=== PATIENT | male | born 1955 | race Caucasian/White ===

== ENCOUNTER 2017-12-14 09:21 | Inpatient (IN) | payer MEDICARE ==
[~2017-12-14] VITALS: Ht 177.8 cm; Wt 76.2 kg
[2017-12-14] MEDS ORDERED: SODIUM CHLORIDE 0.9% 1,000 ML IVB ONE (09:41)
[2017-12-14] MEDS ORDERED: ACETAMINOPHEN 325 MG TAB PO ONE (09:45)
[2017-12-14] MEDS ORDERED: LABETALOL HCL 5 MG/ML ML 20ML VIAL IV ONE (10:30)
[2017-12-14] MEDS ORDERED: SODIUM CHLORIDE 0.9% 1,000 ML IV ONE (10:30)
[2017-12-14 10:39] LABS: Basophils # (auto) 0 uL; Eosinophils # (auto) 0 uL; Lymphocytes # (auto) 0.1 uL; Mean Corpuscular Volume 95.2 fL (80.0-100.0); Monocytes # (auto) 0.1 uL
[2017-12-14 10:50] LABS: INR 1.25 (0.9-1.15); Partial Thromboplastin Time 30.1 sec (22.64-33.71); Prothrombin Time 13.7 sec (9.37-12.3)
[2017-12-14 10:55] LABS: Lactic Acid w/Reflex 3.4 mmol/L (0.4-2.0)
[2017-12-14 10:56] LABS: Urine Bacteria FEW /hpf (None Seen); Urine Blood 2+ /uL (Negative); Urine Specific Gravity 1.017 (1.001-1.035); Urine WBC 10 /hpf (0 - 3)
[2017-12-14 11:02] LABS: Alcohol, Urine < 3.0 mg/dL (0-5); Amphetamine Screen, Urine NEGATIVE (NEGATIVE); Barbiturate Scree,Urine NEGATIVE (NEGATIVE); Benzodiazephine Screen, Urine NEGATIVE (NEGATIVE); Cannabinoid Screen, Urine NEGATIVE (NEGATIVE); Cocaine Screen, Urine NEGATIVE (NEGATIVE); Opiate Scree,Urine NEGATIVE (NEGATIVE); Phencyclidine Screen, Urine NEGATIVE (NEGATIVE)
[2017-12-14 11:09] LABS: Albumin 3.5 g/dL (3.4-5.0); Bilirubin, Total 1.3 mg/dL (0.2-1.0); Calcium 8.8 mg/dL (8.5-10.1); Magnesium 1.9 mg/dL (1.6-2.6); Potassium 4.9 mmol/L (3.5-5.1); Total Protein 7.3 g/dL (6.4-8.2)
[2017-12-14 11:44] LABS: Basophils % (auto) 0.1 % (0.0-2.0); Hematocrit 30.7 % (41.0-53.0); Hemoglobin 10.2 g/dL (13.5-17.5); Lymphocytes % (auto) 5.1 % (10.0-50.0); Mean Corpuscular Hemoglobin 31.8 pg (28.0-32.0); Mean Corpuscular Hgb Conc. 33.4 g/dL (32.0-36.0); Monocytes % (auto) 4.6 % (0.0-12.0); Neutrophils # (auto) 1.8 uL; Neutrophils % (auto) 90.2 % (37.0-80.0); Nucleated Red Blood Cells % 0.7 %; Platelet Count (auto) 37 10^3/uL (140-450); Red Blood Cells 3.22 10^6/uL (4.5-5.90); Red Cell Distribution Width 16.8 % (11.8-14.3)
[2017-12-14] MEDS ORDERED: cefTRIAXone 1GM/10ml IVPUSH 10 ML IV ONE (12:30)
[2017-12-14] MEDS ORDERED: PIPERACILLIN-TAZOB 2.25GM 50 ML IV ONE (13:00)
[2017-12-14] MEDS ORDERED: LORazepam 0.5 MG TAB PO PRN (13:00)
[2017-12-14] MEDS ORDERED: ACETAMINOPHEN 500 MG TAB PO PRN (13:00)
[2017-12-14] MEDS ORDERED: HYDROcodone-ACET 5/325MG TAB PO PRN (13:00)
[2017-12-14] MEDS ORDERED: MORPHINE SULFATE 4 MG/ML SYR/VIAL IV PRN ×2 (13:00)
[2017-12-14] MEDS ORDERED: NITROGLYCERIN 0.4 MG SL TAB SL PRN (13:00)
[2017-12-14] MEDS ORDERED: METOPROLOL TARTRATE 25 MG TAB PO ONE (13:00)
[2017-12-14] MEDS ORDERED: TEMAZEPAM 15 MG CAP PO PRN (13:00)
[2017-12-14] MEDS ORDERED: PROMETHAZINE HCL 25 MG/ML 1ML IV PRN (13:00)
[2017-12-14] MEDS ORDERED: LACTULOSE 20Gm/30ML SOLN PO PRN (13:00)
[2017-12-14] MEDS ORDERED: DEXTROSE (50%) 50ML SYRG IV PRN (13:00)
[2017-12-14] MEDS ORDERED: ACETAMINOPHEN 500 MG TAB PO ONE ×2 (13:09→13:15)
[2017-12-14] MEDS ORDERED: PIPERACILLIN-TAZOB 0.75 GM in D5W 5% 50 ML IV PRN (13:30)
[2017-12-14 13:40] LABS: CRP High Sensitivity 14.3 mg/dL (< 0.3)
[2017-12-14 14:12] LABS: Folate (Folic Acid) 23.85 ng/mL (5.38-24)
[2017-12-14] MEDS: ACCU-CHEK COMFORT CURVE STRIP VI SCH ×3 (17:05→23:50)
[2017-12-14] MEDS: InsuLIN REG 1unit/0.01ml Soln (100units/ml) SC SCH ×3 (17:10→23:50)
[2017-12-14] MEDS ORDERED: ENOXAPARIN SOD 60 MG/0.6 ML SYRINGE SC ONE (20:15)
[2017-12-14] MEDS: PIPERACILLIN-TAZOB 2.25GM 50 ML IV SCH (21:23)
[2017-12-14] MEDS: METOPROLOL TARTRATE 25 MG TAB PO SCH (23:44)
[2017-12-14] MEDS: ATORVASTATIN 20 MG TAB PO SCH (23:44)
[2017-12-15] MEDS ORDERED: VANCOMYCIN PER PHARMACY 0 MG IV SCH (00:30)
[2017-12-15] MEDS ORDERED: VANCOMYCIN 1GM/250ML 250 ML IV ONE ×2 (01:30→07:00)
[2017-12-15] MEDS: ACCU-CHEK COMFORT CURVE STRIP VI SCH ×5 (05:39→20:37)
[2017-12-15] MEDS: InsuLIN REG 1unit/0.01ml Soln (100units/ml) SC SCH ×5 (05:40→20:37)
[2017-12-15 05:48] LABS: Basophils # (auto) 0 uL; Basophils % (auto) 0.1 % (0.0-2.0); Eosinophils # (auto) 0 uL; Hemoglobin 10.7 g/dL (13.5-17.5); Lymphocytes # (auto) 0.2 uL; Monocytes # (auto) 0.1 uL; Neutrophils # (auto) 2.3 uL; White Blood Cell 2.6 10^3/uL (4.4-10.8)
[2017-12-15 05:51] LABS: Hematocrit 30.8 % (41.0-53.0); Lymphocytes % (auto) 8.6 % (10.0-50.0); Mean Corpuscular Hemoglobin 32.9 pg (28.0-32.0); Mean Corpuscular Hgb Conc. 34.8 g/dL (32.0-36.0); Mean Corpuscular Volume 94.5 fL (80.0-100.0); Monocytes % (auto) 3.4 % (0.0-12.0); Neutrophils % (auto) 87.9 % (37.0-80.0); Nucleated Red Blood Cells % 0.3 %; Platelet Count (auto) 41 10^3/uL (140-450); Red Blood Cells 3.26 10^6/uL (4.5-5.90)
[2017-12-15 05:58] LABS: INR 1.37 (0.9-1.15); Partial Thromboplastin Time 43.2 sec (22.64-33.71)
[2017-12-15 06:18] LABS: Albumin 2.7 g/dL (3.4-5.0); BUN/Creatinine Ratio 8.6; Bilirubin, Total 1.4 mg/dL (0.2-1.0); Calcium 8.2 mg/dL (8.5-10.1); Potassium 4.6 mmol/L (3.5-5.1); Total Protein 6.3 g/dL (6.4-8.2)
[2017-12-15] MEDS ORDERED: FURO20TA3 PO (09:24)
[2017-12-15] MEDS ORDERED: CARV12.544 PO (09:24)
[2017-12-15] MEDS ORDERED: DOXA8TAB PO (09:24)
[2017-12-15] MEDS ORDERED: FOLI1TAB6 PO (09:24)
[2017-12-15] MEDS ORDERED: CARV25TA PO (09:24)
[2017-12-15] MEDS ORDERED: TACR1CAP19 PO (09:24)
[2017-12-15] MEDS ORDERED: ASPI81TA27 PO (09:24)
[2017-12-15] MEDS ORDERED: CYA100I PO (09:24)
[2017-12-15] MEDS ORDERED: AMLO5TAB2 PO (09:24)
[2017-12-15] MEDS ORDERED: AMOX250C3 PO (09:24)
[2017-12-15] MEDS ORDERED: DOCU100T15 PO (09:24)
[2017-12-15] MEDS: PANTOPRAZOLE 40 MG/10 ML VIAL IV SCH (10:00)
[2017-12-15] MEDS: PIPERACILLIN-TAZOB 2.25GM 50 ML IV SCH ×2 (10:00→22:15)
[2017-12-15] MEDS: METOPROLOL TARTRATE 25 MG TAB PO SCH ×2 (10:00→12:27)
[2017-12-15] MEDS ORDERED: ENOXAPARIN SOD 60 MG/0.6 ML SYRINGE SC SCH (10:00)
[2017-12-15] MEDS ORDERED: SODIUM CHLORIDE 0.9% 1,000 ML IV ONE (13:00)
[2017-12-15] MEDS: ATORVASTATIN 20 MG TAB PO SCH (22:30)
[2017-12-16] MEDS: ACCU-CHEK COMFORT CURVE STRIP VI SCH ×6 (00:15→20:00)
[2017-12-16] MEDS: InsuLIN REG 1unit/0.01ml Soln (100units/ml) SC SCH ×6 (04:30→20:00)
[2017-12-16 06:05] LABS: Basophils # (auto) 0 uL; Basophils % (auto) 0.6 % (0.0-2.0); Eosinophils # (auto) 0 uL; Hemoglobin 9.9 g/dL (13.5-17.5); Monocytes # (auto) 0.1 uL; Monocytes % (auto) 6.5 % (0.0-12.0); Neutrophils # (auto) 1.4 uL
[2017-12-16 06:08] LABS: Eosinophils % (auto) 0.1 % (0.0-7.0); Hematocrit 28.4 % (41.0-53.0); Lymphocytes # (auto) 0.4 uL; Lymphocytes % (auto) 18.9 % (10.0-50.0); Mean Corpuscular Hemoglobin 32.4 pg (28.0-32.0); Mean Corpuscular Hgb Conc. 34.8 g/dL (32.0-36.0); Neutrophils % (auto) 73.9 % (37.0-80.0); Nucleated Red Blood Cells % 0.5 %; Platelet Count (auto) 26 10^3/uL (140-450); Red Blood Cells 3.05 10^6/uL (4.5-5.90); Red Cell Distribution Width 16.9 % (11.8-14.3)
[2017-12-16 06:09] LABS: White Blood Cell 1.9 10^3/uL (4.4-10.8)
[2017-12-16 06:29] LABS: BUN/Creatinine Ratio 9.5; Calcium 7.7 mg/dL (8.5-10.1); Potassium 4.6 mmol/L (3.5-5.1)
[2017-12-16] MEDS: PIPERACILLIN-TAZOB 2.25GM 50 ML IV SCH ×2 (10:23→21:58)
[2017-12-16] MEDS: PANTOPRAZOLE 40 MG/10 ML VIAL IV SCH (10:23)
[2017-12-16] MEDS: METOPROLOL TARTRATE 25 MG TAB PO SCH ×2 (10:23→22:04)
[2017-12-16 10:37] VITALS: BP 149/100
[2017-12-16] MEDS: ATORVASTATIN 20 MG TAB PO SCH (22:03)
[2017-12-17] MEDS: InsuLIN REG 1unit/0.01ml Soln (100units/ml) SC SCH ×6 (04:00→20:46)
[2017-12-17] MEDS: ACCU-CHEK COMFORT CURVE STRIP VI SCH ×6 (04:00→20:46)
[2017-12-17 10:43] LABS: Hemoglobin 8.8 g/dL (13.5-17.5); White Blood Cell 2.5 10^3/uL (4.4-10.8)
[2017-12-17 10:45] LABS: Hematocrit 25.5 % (41.0-53.0); Mean Corpuscular Hemoglobin 31.9 pg (28.0-32.0); Mean Corpuscular Hgb Conc. 34.4 g/dL (32.0-36.0); Mean Corpuscular Volume 92.7 fL (80.0-100.0); Red Blood Cells 2.75 10^6/uL (4.5-5.90); Red Cell Distribution Width 16.7 % (11.8-14.3)
[2017-12-17 10:53] LABS: Platelet Count (auto) 29 10^3/uL (140-450)
[2017-12-17 10:54] LABS: Basophils % (manual) 0 (0.0-2.0); Blast Cells 0; Eosinophils % (manual) 0 (0-7); Metamyelocytes % 0; Myelocytes % 0; Promyelocytes % 0
[2017-12-17 11:10] LABS: Albumin 2.5 g/dL (3.4-5.0); BUN/Creatinine Ratio 7.9; Bilirubin, Total 0.9 mg/dL (0.2-1.0); Total Protein 6.1 g/dL (6.4-8.2)
[2017-12-17 12:09] LABS: Band Neutrophils % (manual) 10; Lymphocytes % (manual) 13 (10.0-50.0); Monocytes % (manual) 6 (0-12); Reactive Lymphocytes 4
[2017-12-17] MEDS: PIPERACILLIN-TAZOB 2.25GM 50 ML IV SCH ×2 (17:15→23:42)
[2017-12-17] MEDS: PANTOPRAZOLE 40 MG/10 ML VIAL IV SCH (17:15)
[2017-12-17] MEDS: METOPROLOL TARTRATE 25 MG TAB PO SCH ×2 (17:15→23:42)
[2017-12-17] MEDS: ATORVASTATIN 20 MG TAB PO SCH (23:42)
[2017-12-18] MEDS: InsuLIN REG 1unit/0.01ml Soln (100units/ml) SC SCH ×6 (00:54→21:13)
[2017-12-18] MEDS: ACCU-CHEK COMFORT CURVE STRIP VI SCH ×6 (00:56→21:13)
[2017-12-18 07:30] LABS: Hemoglobin 8.8 g/dL (13.5-17.5); White Blood Cell 3.6 10^3/uL (4.4-10.8)
[2017-12-18 07:31] LABS: Hematocrit 25.5 % (41.0-53.0); Mean Corpuscular Hemoglobin 32.1 pg (28.0-32.0); Mean Corpuscular Hgb Conc. 34.5 g/dL (32.0-36.0); Platelet Count (auto) 34 10^3/uL (140-450); Red Blood Cells 2.74 10^6/uL (4.5-5.90); Red Cell Distribution Width 16.6 % (11.8-14.3)
[2017-12-18 07:42] LABS: BUN/Creatinine Ratio 8.2; Calcium 8.1 mg/dL (8.5-10.1); Magnesium 2.2 mg/dL (1.6-2.6); Potassium 4.3 mmol/L (3.5-5.1)
[2017-12-18 07:48] LABS: Basophils % (manual) 0 (0.0-2.0); Metamyelocytes % 0
[2017-12-18 07:49] LABS: Blast Cells 0; Myelocytes % 0; Promyelocytes % 0
[2017-12-18 08:30] VITALS: BP 140/84
[2017-12-18 09:00] VITALS: BP 140/84
[2017-12-18 09:21] VITALS: BP 140/84
[2017-12-18] MEDS: PIPERACILLIN-TAZOB 2.25GM 50 ML IV SCH ×2 (09:43→22:56)
[2017-12-18] MEDS: PANTOPRAZOLE 40 MG/10 ML VIAL IV SCH (09:44)
[2017-12-18] MEDS: METOPROLOL TARTRATE 25 MG TAB PO SCH ×2 (09:44→22:57)
[2017-12-18 09:50] LABS: Band Neutrophils % (manual) 4; Eosinophils % (manual) 1 (0-7); Lymphocytes % (manual) 38 (10.0-50.0); Monocytes % (manual) 6 (0-12); Reactive Lymphocytes 6
[2017-12-18] MEDS ORDERED: VANCOMYCIN 500 MG in D5W 5% 100 ML IV ONE (10:00)
[2017-12-18 13:00] VITALS: BP 143/87
[2017-12-18 16:59] VITALS: BP 145/96
[2017-12-18 22:00] VITALS: BP 120/79
[2017-12-18] MEDS: ATORVASTATIN 20 MG TAB PO SCH (22:56)
[2017-12-19] VITALS (7 sets, daily range): BP systolic 138–161; BP diastolic 87–100
[2017-12-19] MEDS: InsuLIN REG 1unit/0.01ml Soln (100units/ml) SC SCH ×6 (00:25→22:05)
[2017-12-19] MEDS: ACCU-CHEK COMFORT CURVE STRIP VI SCH ×6 (00:25→20:00)
[2017-12-19 05:50] LABS: Hemoglobin 9.4 g/dL (13.5-17.5); Mean Corpuscular Hgb Conc. 34.7 g/dL (32.0-36.0); Red Cell Distribution Width 16.4 % (11.8-14.3); White Blood Cell 5.1 10^3/uL (4.4-10.8)
[2017-12-19 05:53] LABS: Hematocrit 26.9 % (41.0-53.0); Mean Corpuscular Hemoglobin 32.3 pg (28.0-32.0); Mean Corpuscular Volume 92.9 fL (80.0-100.0); Platelet Count (auto) 47 10^3/uL (140-450)
[2017-12-19 06:01] LABS: Basophils % (manual) 0 (0.0-2.0); Blast Cells 0; Eosinophils % (manual) 0 (0-7); Metamyelocytes % 0; Myelocytes % 0; Promyelocytes % 0
[2017-12-19 06:27] LABS: Band Neutrophils % (manual) 2; Lymphocytes % (manual) 46 (10.0-50.0); Monocytes % (manual) 12 (0-12); Reactive Lymphocytes 1
[2017-12-19 06:31] LABS: BUN/Creatinine Ratio 8.5; Calcium 8.1 mg/dL (8.5-10.1); Magnesium 2.3 mg/dL (1.6-2.6)
[2017-12-19] MEDS ORDERED: LATA0.0015 EACHEYE (09:30)
[2017-12-19] MEDS ORDERED: DORZ2SOL22 EACHEYE (09:30)
[2017-12-19] MEDS ORDERED: TAMS0.4C36 PO (09:30)
[2017-12-19] MEDS: METOPROLOL TARTRATE 25 MG TAB PO SCH ×3 (09:41→22:20)
[2017-12-19] MEDS: PIPERACILLIN-TAZOB 2.25GM 50 ML IV SCH ×2 (09:43→22:20)
[2017-12-19] MEDS: PANTOPRAZOLE 40 MG/10 ML VIAL IV SCH (09:44)
[2017-12-19] MEDS ORDERED: VANCOMYCIN 1GM/250ML 250 ML IV ONE (18:00)
[2017-12-19] MEDS: ATORVASTATIN 20 MG TAB PO SCH (22:20)
[2017-12-20] MEDS: InsuLIN REG 1unit/0.01ml Soln (100units/ml) SC SCH ×6 (00:34→20:00)
[2017-12-20] MEDS: ACCU-CHEK COMFORT CURVE STRIP VI SCH ×6 (04:00→20:00)
[2017-12-20 05:00] VITALS: BP 134/66
[2017-12-20 05:39] LABS: Mean Corpuscular Hemoglobin 31.7 pg (28.0-32.0); Mean Corpuscular Hgb Conc. 34.4 g/dL (32.0-36.0); Mean Corpuscular Volume 92.1 fL (80.0-100.0); Platelet Count (auto) 97 10^3/uL (140-450); Red Blood Cells 3.15 10^6/uL (4.5-5.90); Red Cell Distribution Width 16.7 % (11.8-14.3); White Blood Cell 7.6 10^3/uL (4.4-10.8)
[2017-12-20 05:50] LABS: Basophils % (manual) 0 (0.0-2.0); Blast Cells 0; Metamyelocytes % 0; Myelocytes % 0; Promyelocytes % 0; Reactive Lymphocytes 0
[2017-12-20 05:53] LABS: INR 1.05 (0.9-1.15); Partial Thromboplastin Time 29.4 sec (22.64-33.71); Prothrombin Time 11.4 sec (9.37-12.3)
[2017-12-20 06:00] LABS: Calcium 8.1 mg/dL (8.5-10.1)
[2017-12-20 06:04] LABS: Albumin 2.5 g/dL (3.4-5.0); BUN/Creatinine Ratio 7.9; Magnesium 2.1 mg/dL (1.6-2.6)
[2017-12-20 06:06] LABS: Band Neutrophils % (manual) 3; Bilirubin, Total 0.8 mg/dL (0.2-1.0); Eosinophils % (manual) 2 (0-7); Lymphocytes % (manual) 54 (10.0-50.0); Monocytes % (manual) 5 (0-12); Total Protein 6.8 g/dL (6.4-8.2)
[2017-12-20 09:00] VITALS: BP 136/88
[2017-12-20] MEDS: PIPERACILLIN-TAZOB 2.25GM 50 ML IV SCH ×2 (10:20→21:56)
[2017-12-20] MEDS: METOPROLOL TARTRATE 25 MG TAB PO SCH ×2 (10:20→21:57)
[2017-12-20] MEDS: PANTOPRAZOLE 40 MG/10 ML VIAL IV SCH (10:20)
[2017-12-20] MEDS ORDERED: LIDOCAINE HCL 2 %PF INJ 10ML AMP IJ ONE (12:07)
[2017-12-20] MEDS ORDERED: IODIXANOL 320MG/ML 100ML BTL IV ONE ×2 (12:07→13:52)
[2017-12-20] MEDS ORDERED: ANGIOMAX 250 MG VIAL IV ONE (12:12)
[2017-12-20] MEDS ORDERED: fentaNYL CITRATE 100 MCG/2 ML VL ONE (12:12)
[2017-12-20] MEDS ORDERED: MIDAZOLAM HCL 1MG/1ML-2 ML VIAL ONE (12:13)
[2017-12-20] MEDS ORDERED: SODIUM CHL 0.9% 0 ML ONE (12:13)
[2017-12-20] MEDS ORDERED: HEPARIN DRIP/D5W 100UNITS/ML 250 ML IV SCH ×2 (14:02→22:00)
[2017-12-20 14:55] LABS: INR 1.05 (0.9-1.15); Partial Thromboplastin Time 28.6 sec (22.64-33.71); Prothrombin Time 11.4 sec (9.37-12.3)
[2017-12-20] MEDS ORDERED: HEPARIN SODIUM (PORCINE) 5000 UNITS/ML 1ML VIAL IV ONE ×2 (15:00)
[2017-12-20 15:51] LABS: Hematocrit 26.9 % (41.0-53.0); Hemoglobin 9.2 g/dL (13.5-17.5); Mean Corpuscular Hgb Conc. 34.3 g/dL (32.0-36.0)
[2017-12-20 15:54] LABS: Mean Corpuscular Hemoglobin 31.9 pg (28.0-32.0); Platelet Count (auto) 99 10^3/uL (140-450); Red Blood Cells 2.89 10^6/uL (4.5-5.90); Red Cell Distribution Width 16.1 % (11.8-14.3); White Blood Cell 6.5 10^3/uL (4.4-10.8)
[2017-12-20 16:07] LABS: Basophils % (manual) 0 (0.0-2.0); Metamyelocytes % 0
[2017-12-20 16:08] LABS: Blast Cells 0; Myelocytes % 0; Promyelocytes % 0
[2017-12-20 17:50] LABS: Band Neutrophils % (manual) 2; Eosinophils % (manual) 2 (0-7); Lymphocytes % (manual) 57 (10.0-50.0); Monocytes % (manual) 8 (0-12); Reactive Lymphocytes 1
[2017-12-20 17:56] VITALS: BP 150/97
[2017-12-20] MEDS: ATORVASTATIN 20 MG TAB PO SCH (21:56)
[2017-12-20 22:30] VITALS: BP 140/85
[2017-12-21] VITALS (8 sets, daily range): BP systolic 116–153; BP diastolic 69–98
[2017-12-21] MEDS: ACCU-CHEK COMFORT CURVE STRIP VI SCH ×7 (00:09→23:36)
[2017-12-21 03:49] LABS: Basophils # (auto) 0 uL; Basophils % (auto) 0.2 % (0.0-2.0); Eosinophils # (auto) 0.1 uL; Eosinophils % (auto) 1.4 % (0.0-7.0); Hematocrit 24.6 % (41.0-53.0); Hemoglobin 8.8 g/dL (13.5-17.5); Lymphocytes # (auto) 1.9 uL; Lymphocytes % (auto) 39.3 % (10.0-50.0); Mean Corpuscular Hemoglobin 32.5 pg (28.0-32.0); Mean Corpuscular Hgb Conc. 35.6 g/dL (32.0-36.0); Mean Corpuscular Volume 91.5 fL (80.0-100.0); Monocytes # (auto) 0.4 uL; Monocytes % (auto) 7.2 % (0.0-12.0); Neutrophils # (auto) 2.5 uL; Neutrophils % (auto) 51.9 % (37.0-80.0); Nucleated Red Blood Cells % 0.1 %; Platelet Count (auto) 101 10^3/uL (140-450); Red Blood Cells 2.69 10^6/uL (4.5-5.90); Red Cell Distribution Width 16.3 % (11.8-14.3); White Blood Cell 4.9 10^3/uL (4.4-10.8)
[2017-12-21] MEDS: InsuLIN REG 1unit/0.01ml Soln (100units/ml) SC SCH ×7 (04:00→23:37)
[2017-12-21 04:04] LABS: INR 1.05 (0.9-1.15); Partial Thromboplastin Time 55.1 sec (22.64-33.71); Prothrombin Time 11.5 sec (9.37-12.3)
[2017-12-21 04:09] LABS: BUN/Creatinine Ratio 8.3; Calcium 7.7 mg/dL (8.5-10.1); Potassium 4.1 mmol/L (3.5-5.1)
[2017-12-21 09:26] LABS: INR 1.05 (0.9-1.15); Partial Thromboplastin Time 58.3 sec (22.64-33.71); Prothrombin Time 11.5 sec (9.37-12.3)
[2017-12-21] MEDS: PANTOPRAZOLE 40 MG/10 ML VIAL IV SCH (10:09)
[2017-12-21] MEDS: PIPERACILLIN-TAZOB 2.25GM 50 ML IV SCH ×2 (10:09→22:00)
[2017-12-21] MEDS: METOPROLOL TARTRATE 25 MG TAB PO SCH ×2 (10:09→22:01)
[2017-12-21 16:37] LABS: INR 1.04 (0.9-1.15); Partial Thromboplastin Time 33.4 sec (22.64-33.71); Prothrombin Time 11.3 sec (9.37-12.3)
[2017-12-21] MEDS ORDERED: HEPARIN DRIP/D5W 100UNITS/ML 250 ML IV SCH (17:00)
[2017-12-21] MEDS: ATORVASTATIN 20 MG TAB PO SCH (22:00)
[2017-12-21 22:52] LABS: INR 1.08 (0.9-1.15); Partial Thromboplastin Time 61.6 sec (22.64-33.71); Prothrombin Time 11.8 sec (9.37-12.3)
[2017-12-22] VITALS (7 sets, daily range): BP systolic 115–137; BP diastolic 82–90
[2017-12-22] MEDS: InsuLIN REG 1unit/0.01ml Soln (100units/ml) SC SCH ×6 (04:00→23:25)
[2017-12-22] MEDS: ACCU-CHEK COMFORT CURVE STRIP VI SCH ×6 (04:05→23:25)
[2017-12-22 05:58] LABS: Basophils # (auto) 0 uL; Basophils % (auto) 0.2 % (0.0-2.0); Eosinophils # (auto) 0.1 uL; Eosinophils % (auto) 1.3 % (0.0-7.0); Hematocrit 26.2 % (41.0-53.0); Hemoglobin 9.3 g/dL (13.5-17.5); Lymphocytes % (auto) 46.3 % (10.0-50.0); Mean Corpuscular Hemoglobin 32.6 pg (28.0-32.0); Mean Corpuscular Hgb Conc. 35.6 g/dL (32.0-36.0); Mean Corpuscular Volume 91.8 fL (80.0-100.0); Monocytes # (auto) 0.3 uL; Neutrophils % (auto) 45.2 % (37.0-80.0); Nucleated Red Blood Cells % 0.1 %; Platelet Count (auto) 120 10^3/uL (140-450); Red Blood Cells 2.86 10^6/uL (4.5-5.90); Red Cell Distribution Width 16.2 % (11.8-14.3); White Blood Cell 4.4 10^3/uL (4.4-10.8)
[2017-12-22 06:16] LABS: INR 1.05 (0.9-1.15); Prothrombin Time 11.5 sec (9.37-12.3)
[2017-12-22 06:27] LABS: Albumin 2.6 g/dL (3.4-5.0); BUN/Creatinine Ratio 6.3; Bilirubin, Total 0.7 mg/dL (0.2-1.0); Calcium 8.1 mg/dL (8.5-10.1); Potassium 3.8 mmol/L (3.5-5.1); Total Protein 7.5 g/dL (6.4-8.2)
[2017-12-22] MEDS: PIPERACILLIN-TAZOB 2.25GM 50 ML IV SCH ×2 (09:41→21:44)
[2017-12-22] MEDS: METOPROLOL TARTRATE 25 MG TAB PO SCH ×2 (09:42→21:45)
[2017-12-22] MEDS: PANTOPRAZOLE 40 MG/10 ML VIAL IV SCH (09:42)
[2017-12-22] MEDS ORDERED: VANCOMYCIN 1GM/250ML 250 ML IV ONE (10:00)
[2017-12-22] MEDS: HEPARIN DRIP/D5W 100UNITS/ML 250 ML IV SCH (10:57)
[2017-12-22 13:58] LABS: INR 1.05 (0.9-1.15); Prothrombin Time 11.4 sec (9.37-12.3)
[2017-12-22 14:21] LABS: Partial Thromboplastin Time 39.7 sec (22.64-33.71)
[2017-12-22] MEDS ORDERED: B-COMPLEX W/ C & FOLIC ACID(NEPHROVITE TAB) PO ONE (17:30)
[2017-12-22 19:37] LABS: INR 1.07 (0.9-1.15); Partial Thromboplastin Time 53.7 sec (22.64-33.71); Prothrombin Time 11.7 sec (9.37-12.3)
[2017-12-22] MEDS: Novasource Renal 8 Ounces PO SCH (19:55)
[2017-12-22] MEDS: PRO-STAT 64 30ML PO SCH (19:55)
[2017-12-22] MEDS: ATORVASTATIN 20 MG TAB PO SCH (21:44)
[2017-12-22] MEDS: ASCORBIC ACID 500 MG TAB PO SCH (21:45)
[2017-12-23] VITALS (7 sets, daily range): BP systolic 107–155; BP diastolic 61–85
[2017-12-23] MEDS: InsuLIN REG 1unit/0.01ml Soln (100units/ml) SC SCH ×5 (03:27→21:01)
[2017-12-23] MEDS: ACCU-CHEK COMFORT CURVE STRIP VI SCH ×5 (03:28→21:00)
[2017-12-23] MEDS: HEPARIN DRIP/D5W 100UNITS/ML 250 ML IV SCH (05:58)
[2017-12-23 06:29] LABS: Basophils # (auto) 0 uL; Basophils % (auto) 0.3 % (0.0-2.0); Eosinophils # (auto) 0 uL; Hematocrit 24.4 % (41.0-53.0); Hemoglobin 8.5 g/dL (13.5-17.5); Lymphocytes # (auto) 2.1 uL; Lymphocytes % (auto) 47.7 % (10.0-50.0); Mean Corpuscular Hgb Conc. 34.6 g/dL (32.0-36.0); Mean Corpuscular Volume 92.3 fL (80.0-100.0); Monocytes # (auto) 0.4 uL; Monocytes % (auto) 8.8 % (0.0-12.0); Neutrophils # (auto) 1.9 uL; Neutrophils % (auto) 42.2 % (37.0-80.0); Nucleated Red Blood Cells % 0.1 %; Platelet Count (auto) 129 10^3/uL (140-450); Red Blood Cells 2.64 10^6/uL (4.5-5.90); White Blood Cell 4.4 10^3/uL (4.4-10.8)
[2017-12-23 06:39] LABS: INR 1.05 (0.9-1.15); Prothrombin Time 11.5 sec (9.37-12.3)
[2017-12-23 06:52] LABS: Partial Thromboplastin Time 104.6 sec (22.64-33.71)
[2017-12-23] MEDS: PRO-STAT 64 30ML PO SCH ×2 (08:15→17:58)
[2017-12-23] MEDS: Novasource Renal 8 Ounces PO SCH ×2 (08:15→17:58)
[2017-12-23] MEDS: PANTOPRAZOLE 40 MG/10 ML VIAL IV SCH (09:29)
[2017-12-23] MEDS: PIPERACILLIN-TAZOB 2.25GM 50 ML IV SCH ×2 (09:29→22:38)
[2017-12-23] MEDS: ASCORBIC ACID 500 MG TAB PO SCH ×2 (09:30→22:37)
[2017-12-23] MEDS: METOPROLOL TARTRATE 25 MG TAB PO SCH ×2 (09:30→22:37)
[2017-12-23] MEDS ORDERED: B-COMPLEX W/ C & FOLIC ACID(NEPHROVITE TAB) PO SCH (10:00)
[2017-12-23] MEDS ORDERED: EPOETIN ALFA 10,000 UNIT/1 ML VIAL IV ONE (11:00)
[2017-12-23 14:56] LABS: INR 1.05 (0.9-1.15); Partial Thromboplastin Time 52.3 sec (22.64-33.71); Prothrombin Time 11.4 sec (9.37-12.3)
[2017-12-23] MEDS ORDERED: VANCOMYCIN 1GM/250ML 250 ML IV ONE (18:00)
[2017-12-23] MEDS: ATORVASTATIN 20 MG TAB PO SCH (22:37)
[2017-12-24] VITALS (7 sets, daily range): BP systolic 117–151; BP diastolic 79–93
[2017-12-24 00:02] LABS: INR 1.06 (0.9-1.15); Partial Thromboplastin Time 55.5 sec (22.64-33.71); Prothrombin Time 11.6 sec (9.37-12.3)
[2017-12-24] MEDS ORDERED: TEMAZEPAM 15 MG CAP PO PRN (00:45)
[2017-12-24] MEDS ORDERED: PIPERACILLIN-TAZOB 2.25GM 0.75 GM in D5W 5% 50 ML IV SCH (00:45)
[2017-12-24] MEDS ORDERED: MORPHINE SULFATE 4 MG/ML SYR/VIAL IV PRN (00:45)
[2017-12-24] MEDS ORDERED: VANCOMYCIN PER PHARMACY 0 MG IV SCH (00:45)
[2017-12-24] MEDS ORDERED: LORazepam 0.5 MG TAB PO PRN (00:45)
[2017-12-24] MEDS ORDERED: MORPHINE SULF INJ 2 MG/ML SYRINGE 1ML IV PRN (00:45)
[2017-12-24] MEDS ORDERED: NITROGLYCERIN 0.4 MG SL TAB SL PRN (00:45)
[2017-12-24] MEDS ORDERED: PROMETHAZINE HCL 25 MG/ML 1ML IV PRN (00:45)
[2017-12-24] MEDS ORDERED: ACETAMINOPHEN 500 MG TAB PO PRN (00:45)
[2017-12-24] MEDS ORDERED: LACTULOSE 20Gm/30ML SOLN PO PRN (00:45)
[2017-12-24] MEDS ORDERED: HEPARIN DRIP/D5W 100UNITS/ML 250 ML IV SCH ×3 (01:01→02:00)
[2017-12-24] MEDS ORDERED: HYDROcodone-ACET 5/325MG TAB PO PRN (01:15)
[2017-12-24] MEDS ORDERED: DEXTROSE (50%) 50ML SYRG IV PRN (01:15)
[2017-12-24 03:41] LABS: INR 1.06 (0.9-1.15); Partial Thromboplastin Time 34.8 sec (22.64-33.71); Prothrombin Time 11.6 sec (9.37-12.3)
[2017-12-24] MEDS: InsuLIN REG 1unit/0.01ml Soln (100units/ml) SC SCH ×6 (04:20→23:39)
[2017-12-24] MEDS: ACCU-CHEK COMFORT CURVE STRIP VI SCH ×6 (04:21→23:39)
[2017-12-24] MEDS: Novasource Renal 8 Ounces PO SCH ×2 (08:40→17:47)
[2017-12-24] MEDS: PRO-STAT 64 30ML PO SCH ×2 (08:41→17:47)
[2017-12-24] MEDS: PIPERACILLIN-TAZOB 2.25GM 50 ML IV SCH ×2 (09:36→21:59)
[2017-12-24] MEDS: MULTIPLE VITAMINS W/ MINERALS TAB PO SCH (09:36)
[2017-12-24] MEDS: PANTOPRAZOLE 40 MG/10 ML VIAL IV SCH (09:36)
[2017-12-24] MEDS: ASCORBIC ACID 500 MG TAB PO SCH ×2 (09:36→21:59)
[2017-12-24] MEDS: METOPROLOL TARTRATE 25 MG TAB PO SCH ×2 (09:37→21:59)
[2017-12-24] MEDS: ENOXAPARIN SOD 80 MG/0.8ML SYRINGE SC SCH (12:00)
[2017-12-24] MEDS: ATORVASTATIN 20 MG TAB PO SCH (21:59)
[2017-12-25] VITALS (7 sets, daily range): BP systolic 117–144; BP diastolic 77–86
[2017-12-25] MEDS: ACCU-CHEK COMFORT CURVE STRIP VI SCH ×5 (04:00→19:40)
[2017-12-25] MEDS: InsuLIN REG 1unit/0.01ml Soln (100units/ml) SC SCH ×5 (04:00→19:40)
[2017-12-25 06:00] LABS: Basophils # (auto) 0 uL; Lymphocytes # (auto) 1.9 uL; Mean Corpuscular Hemoglobin 32.7 pg (28.0-32.0); Monocytes # (auto) 0.4 uL; Red Cell Distribution Width 15.9 % (11.8-14.3); White Blood Cell 4.5 10^3/uL (4.4-10.8)
[2017-12-25 06:03] LABS: Basophils % (auto) 0.2 % (0.0-2.0); Eosinophils # (auto) 0.1 uL; Eosinophils % (auto) 1.5 % (0.0-7.0); Hematocrit 21.8 % (41.0-53.0); Lymphocytes % (auto) 42.2 % (10.0-50.0); Mean Corpuscular Hgb Conc. 35.7 g/dL (32.0-36.0); Mean Corpuscular Volume 91.5 fL (80.0-100.0); Monocytes % (auto) 8.6 % (0.0-12.0); Neutrophils # (auto) 2.1 uL; Neutrophils % (auto) 47.5 % (37.0-80.0); Nucleated Red Blood Cells % 0.1 %; Red Blood Cells 2.38 10^6/uL (4.5-5.90)
[2017-12-25 06:09] LABS: Hemoglobin 7.9 g/dL (13.5-17.5); Platelet Count (auto) 131 10^3/uL (140-450)
[2017-12-25 06:10] LABS: BUN/Creatinine Ratio 6.1; Calcium 8.4 mg/dL (8.5-10.1); Phosphorus 8.9 mg/dL (2.5-4.90); Potassium 3.7 mmol/L (3.5-5.1)
[2017-12-25] MEDS: Novasource Renal 8 Ounces PO SCH ×2 (07:45→17:37)
[2017-12-25] MEDS: PRO-STAT 64 30ML PO SCH ×2 (07:45→17:37)
[2017-12-25] MEDS: METOPROLOL TARTRATE 25 MG TAB PO SCH ×2 (09:25→21:54)
[2017-12-25] MEDS: ASCORBIC ACID 500 MG TAB PO SCH ×2 (09:25→21:53)
[2017-12-25] MEDS: MULTIPLE VITAMINS W/ MINERALS TAB PO SCH (09:25)
[2017-12-25] MEDS: PANTOPRAZOLE 40 MG/10 ML VIAL IV SCH (09:26)
[2017-12-25] MEDS: ENOXAPARIN SOD 80 MG/0.8ML SYRINGE SC SCH (09:26)
[2017-12-25] MEDS: PIPERACILLIN-TAZOB 2.25GM 50 ML IV SCH ×2 (09:26→21:54)
[2017-12-25] MEDS: ATORVASTATIN 20 MG TAB PO SCH (21:53)
[2017-12-26] MEDS: ACCU-CHEK COMFORT CURVE STRIP VI SCH ×6 (00:02→19:44)
[2017-12-26] MEDS: InsuLIN REG 1unit/0.01ml Soln (100units/ml) SC SCH ×6 (00:03→19:44)
[2017-12-26 05:00] VITALS: BP 143/87
[2017-12-26 05:52] LABS: Basophils # (auto) 0 uL; Eosinophils # (auto) 0.1 uL; Monocytes # (auto) 0.3 uL; Neutrophils # (auto) 2.1 uL
[2017-12-26 05:55] LABS: Basophils % (auto) 0.2 % (0.0-2.0); Eosinophils % (auto) 1.4 % (0.0-7.0); Hematocrit 20.3 % (41.0-53.0); Hemoglobin 7.1 g/dL (13.5-17.5); Lymphocytes # (auto) 1.7 uL; Lymphocytes % (auto) 40.7 % (10.0-50.0); Mean Corpuscular Hemoglobin 32.5 pg (28.0-32.0); Mean Corpuscular Hgb Conc. 35.2 g/dL (32.0-36.0); Mean Corpuscular Volume 92.2 fL (80.0-100.0); Monocytes % (auto) 7.5 % (0.0-12.0); Neutrophils % (auto) 50.2 % (37.0-80.0); Nucleated Red Blood Cells % 0.3 %; Platelet Count (auto) 120 10^3/uL (140-450); White Blood Cell 4.2 10^3/uL (4.4-10.8)
[2017-12-26] MEDS: Novasource Renal 8 Ounces PO SCH ×2 (08:14→18:43)
[2017-12-26] MEDS: PRO-STAT 64 30ML PO SCH ×2 (08:14→18:00)
[2017-12-26 09:12] VITALS: BP 152/89
[2017-12-26] MEDS ORDERED: SODIUM CHL 0.9% 1000 ML BAG XX ONE (10:00)
[2017-12-26] MEDS ORDERED: EPOETIN ALFA 10,000 UNIT/1 ML VIAL IV ONE (10:00)
[2017-12-26 13:00] VITALS: BP 137/75
[2017-12-26] MEDS: METOPROLOL TARTRATE 25 MG TAB PO SCH ×2 (16:39→21:52)
[2017-12-26] MEDS: ENOXAPARIN SOD 80 MG/0.8ML SYRINGE SC SCH (16:39)
[2017-12-26] MEDS: ASCORBIC ACID 500 MG TAB PO SCH ×2 (16:39→21:51)
[2017-12-26] MEDS: PANTOPRAZOLE 40 MG/10 ML VIAL IV SCH (16:39)
[2017-12-26] MEDS: PIPERACILLIN-TAZOB 2.25GM 50 ML IV SCH ×2 (16:39→21:51)
[2017-12-26] MEDS: MULTIPLE VITAMINS W/ MINERALS TAB PO SCH (16:40)
[2017-12-26 17:04] VITALS: BP 142/96
[2017-12-26 20:00] VITALS: BP 127/72
[2017-12-26] MEDS: ATORVASTATIN 20 MG TAB PO SCH (21:51)
[2017-12-26 22:28] VITALS: BP 127/72
[2017-12-27] MEDS: ACCU-CHEK COMFORT CURVE STRIP VI SCH ×7 (00:03→23:51)
[2017-12-27] MEDS: InsuLIN REG 1unit/0.01ml Soln (100units/ml) SC SCH ×7 (00:04→23:50)
[2017-12-27 04:33] VITALS: BP 147/97
[2017-12-27] MEDS: Novasource Renal 8 Ounces PO SCH ×2 (08:00→18:28)
[2017-12-27] MEDS: PRO-STAT 64 30ML PO SCH ×2 (08:00→18:28)
[2017-12-27 09:00] VITALS: BP 137/93
[2017-12-27] MEDS: PANTOPRAZOLE 40 MG/10 ML VIAL IV SCH (10:39)
[2017-12-27] MEDS: PIPERACILLIN-TAZOB 2.25GM 50 ML IV SCH (10:39)
[2017-12-27] MEDS: ASCORBIC ACID 500 MG TAB PO SCH ×2 (10:39→21:29)
[2017-12-27] MEDS: ENOXAPARIN SOD 80 MG/0.8ML SYRINGE SC SCH (10:39)
[2017-12-27] MEDS: METOPROLOL TARTRATE 25 MG TAB PO SCH ×2 (10:40→21:28)
[2017-12-27] MEDS: MULTIPLE VITAMINS W/ MINERALS TAB PO SCH (10:40)
[2017-12-27 13:00] VITALS: BP 139/87
[2017-12-27 17:52] VITALS: BP 160/94
[2017-12-27] MEDS: ATORVASTATIN 20 MG TAB PO SCH (21:28)
[2017-12-27 21:43] VITALS: BP 150/86
[2017-12-28] VITALS (12 sets, daily range): BP systolic 127–176; BP diastolic 88–110
[2017-12-28] MEDS: InsuLIN REG 1unit/0.01ml Soln (100units/ml) SC SCH ×5 (03:39→20:17)
[2017-12-28] MEDS: ACCU-CHEK COMFORT CURVE STRIP VI SCH ×5 (03:40→20:17)
[2017-12-28] MEDS: PRO-STAT 64 30ML PO SCH ×2 (08:03→18:22)
[2017-12-28] MEDS: Novasource Renal 8 Ounces PO SCH ×2 (08:03→18:22)
[2017-12-28] MEDS: ENOXAPARIN SOD 80 MG/0.8ML SYRINGE SC SCH (10:56)
[2017-12-28] MEDS: MULTIPLE VITAMINS W/ MINERALS TAB PO SCH (10:56)
[2017-12-28] MEDS: METOPROLOL TARTRATE 25 MG TAB PO SCH ×2 (10:57→21:39)
[2017-12-28] MEDS: PANTOPRAZOLE 40 MG/10 ML VIAL IV SCH (10:57)
[2017-12-28] MEDS: ASCORBIC ACID 500 MG TAB PO SCH ×2 (10:57→21:39)
[2017-12-28] MEDS ORDERED: SODIUM CHL 0.9% 1000 ML BAG XX ONE (11:15)
[2017-12-28] MEDS ORDERED: EPOETIN ALFA 10,000 UNIT/1 ML VIAL IV ONE (11:15)
[2017-12-28 11:36] LABS: Basophils # (auto) 0 uL; Eosinophils # (auto) 0 uL; Hemoglobin 7.4 g/dL (13.5-17.5); Lymphocytes # (auto) 1.6 uL; Lymphocytes % (auto) 40.1 % (10.0-50.0); Neutrophils # (auto) 2.1 uL
[2017-12-28 11:37] LABS: Basophils % (auto) 0.8 % (0.0-2.0); Eosinophils % (auto) 1.1 % (0.0-7.0); Hematocrit 21.3 % (41.0-53.0); Mean Corpuscular Hemoglobin 32.2 pg (28.0-32.0); Mean Corpuscular Hgb Conc. 34.7 g/dL (32.0-36.0); Mean Corpuscular Volume 92.9 fL (80.0-100.0); Monocytes # (auto) 0.2 uL; Monocytes % (auto) 5.7 % (0.0-12.0); Neutrophils % (auto) 52.3 % (37.0-80.0); Red Blood Cells 2.29 10^6/uL (4.5-5.90); Red Cell Distribution Width 16.1 % (11.8-14.3)
[2017-12-28 11:41] LABS: Platelet Count (auto) 112 10^3/uL (140-450)
[2017-12-28 12:22] LABS: Albumin 2.6 g/dL (3.4-5.0); BUN/Creatinine Ratio 6.1; Bilirubin, Total 0.5 mg/dL (0.2-1.0); Calcium 8.5 mg/dL (8.5-10.1); Phosphorus 8.5 mg/dL (2.5-4.90); Potassium 4.3 mmol/L (3.5-5.1); Total Protein 7.5 g/dL (6.4-8.2)
[2017-12-28] MEDS ORDERED: VANCOMYCIN 1GM/250ML 250 ML IV ONE (16:00)
[2017-12-28] MEDS: ATORVASTATIN 20 MG TAB PO SCH (21:39)
[2017-12-29] MEDS: ACCU-CHEK COMFORT CURVE STRIP VI SCH ×6 (00:17→20:38)
[2017-12-29] MEDS: InsuLIN REG 1unit/0.01ml Soln (100units/ml) SC SCH ×6 (00:20→20:38)
[2017-12-29 06:08] VITALS: BP 161/95
[2017-12-29 06:50] LABS: Calcium 9.6 mg/dL (8.5-10.1); Potassium 4.3 mmol/L (3.5-5.1)
[2017-12-29 06:59] LABS: BUN/Creatinine Ratio 6.3
[2017-12-29 08:00] VITALS: BP 134/101
[2017-12-29] MEDS: Novasource Renal 8 Ounces PO SCH ×2 (08:40→18:13)
[2017-12-29] MEDS: PRO-STAT 64 30ML PO SCH ×2 (08:40→18:13)
[2017-12-29 09:00] VITALS: BP 134/101
[2017-12-29] MEDS: PANTOPRAZOLE 40 MG/10 ML VIAL IV SCH (09:50)
[2017-12-29] MEDS: ENOXAPARIN SOD 80 MG/0.8ML SYRINGE SC SCH (09:50)
[2017-12-29] MEDS: METOPROLOL TARTRATE 25 MG TAB PO SCH (09:51)
[2017-12-29] MEDS: ASCORBIC ACID 500 MG TAB PO SCH ×2 (09:51→21:45)
[2017-12-29] MEDS: MULTIPLE VITAMINS W/ MINERALS TAB PO SCH (09:51)
[2017-12-29 13:00] VITALS: BP 132/102
[2017-12-29 17:00] VITALS: BP 151/97
[2017-12-29 20:00] VITALS: BP 147/98
[2017-12-29] MEDS: ATORVASTATIN 20 MG TAB PO SCH (21:37)
[2017-12-29] MEDS ORDERED: METOPROLOL TARTRATE 50 MG TAB PO SCH (22:00)
[2017-12-30] MEDS ORDERED: EPOETIN ALFA 10,000 UNIT/1 ML VIAL IV ONE (09:00)
[2017-12-30] MEDS ORDERED: SODIUM CHL 0.9% 1000 ML BAG XX ONE (09:00)
== END 2017-12-29 23:59 | DRG 280 ==
LOC: ER 09:21 → TELE 09:22 → TELE-CENTR 12-18 08:49 → UNDODISIN 12-23 13:45
PROVIDERS: ADMIT Internal Medicine; ATTEND Internal Medicine Pulmonary Disease
PROC: 5A1D70Z Performance of Urinary Filtration, Intermittent, Less than 6 Hours Per Day (ICD-10-PCS; 2017-12-16)
PROC: 5A1D70Z Performance of Urinary Filtration, Intermittent, Less than 6 Hours Per Day (ICD-10-PCS; 2017-12-19)
PROC: 4A023N7 Measurement of Cardiac Sampling and Pressure, Left Heart, Percutaneous Approach (ICD-10-PCS; principal; 2017-12-20)
PROC: B2111ZZ Fluoroscopy of Multiple Coronary Arteries using Low Osmolar Contrast (ICD-10-PCS; 2017-12-20)
PROC: B2151ZZ Fluoroscopy of Left Heart using Low Osmolar Contrast (ICD-10-PCS; 2017-12-20)
PROC: 5A1D70Z Performance of Urinary Filtration, Intermittent, Less than 6 Hours Per Day (ICD-10-PCS; 2017-12-21)
PROC: 5A1D70Z Performance of Urinary Filtration, Intermittent, Less than 6 Hours Per Day (ICD-10-PCS; 2017-12-23)
PROC: 5A1D70Z Performance of Urinary Filtration, Intermittent, Less than 6 Hours Per Day (ICD-10-PCS; 2017-12-26)
PROC: 5A1D70Z Performance of Urinary Filtration, Intermittent, Less than 6 Hours Per Day (ICD-10-PCS; 2017-12-28)
PROC: 30233N1 Transfusion of Nonautologous Red Blood Cells into Peripheral Vein, Percutaneous Approach (ICD-10-PCS; 2017-12-28)
DX: T82.7XXA Infection and inflammatory reaction due to other cardiac and vascular devices, implants and grafts, initial encounter (principal); A41.9 Sepsis, unspecified organism; I21.4 Non-ST elevation (NSTEMI) myocardial infarction; G92 Toxic encephalopathy; I13.2 Hypertensive heart and chronic kidney disease with heart failure and with stage 5 chronic kidney disease, or end stage renal disease; D61.818 Other pancytopenia; E44.0 Moderate protein-calorie malnutrition; N18.6 End stage renal disease; Z94.4 Liver transplant status; N39.0 Urinary tract infection, site not specified; L03.115 Cellulitis of right lower limb; Y83.9 Surgical procedure, unspecified as the cause of abnormal reaction of the patient, or of later complication, without mention of misadventure at the time of the procedure; E11.22 Type 2 diabetes mellitus with diabetic chronic kidney disease; I67.2 Cerebral atherosclerosis; I50.9 Heart failure, unspecified; D63.8 Anemia in other chronic diseases classified elsewhere; E11.65 Type 2 diabetes mellitus with hyperglycemia; I25.10 Atherosclerotic heart disease of native coronary artery without angina pectoris; K72.90 Hepatic failure, unspecified without coma; Z99.2 Dependence on renal dialysis; Z87.891 Personal history of nicotine dependence; Z82.49 Family history of ischemic heart disease and other diseases of the circulatory system; Z68.24 Body mass index [BMI] 24.0-24.9, adult
CPT/HCPCS: 36415; 70450; 71045; 71046; 73630; 78582; 80048; 80053; 80061; 80197; 80202; 80307; 80320; 81001; 82140; 82270; 82306; 82550; 82607; 82746; 82962; 83036; 83605; 83735; 83880; 83970; 84100; 84443; 84484; 85007; 85025; 85027; 85379; 85610; 85652; 85730; 86141; 86850; 86900; 86901; 86920; 87040; 87070; 87077; 87081; 87086; 87186; 87493; 87804; 87880; 90935; 93005; 93306; 93458; 93886; 93926; 93970; 93971; 95819; 96361; 96374; 96375; 97116; 99152; 99291; A4565; C9113; J0885; J1642; J1815; J2250; J2543; J7060; Q9967